=== PATIENT | female | born 1970 | race Hispanic/Latino ===

== ENCOUNTER 2017-03-26 02:14 | Emergency (ER) | payer OTHER ==
[2017-03-26 07:40] VITALS: BP 141/80
[2017-03-26] MEDS ORDERED: ULTRAM PO ONE (11:11)
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
== END 2017-03-26 11:17 | disposition home or self-care (01) ==
LOC: ED 02:14
DX: S16.1XXA Strain of muscle, fascia and tendon at neck level, initial encounter (principal); F17.200 Nicotine dependence, unspecified, uncomplicated; Z88.2 Allergy status to sulfonamides; V87.7XXA Person injured in collision between other specified motor vehicles (traffic), initial encounter; Y93.89 Activity, other specified; Y99.9 Unspecified external cause status; Y92.410 Unspecified street and highway as the place of occurrence of the external cause
CPT/HCPCS: 99282

== ENCOUNTER 2017-09-07 18:34 | Emergency (ER) | payer SELFPAY ==
--- NOTE | 2017-09-07 22:18 | XRay Report ---
FINAL REPORT EXAM: XR KNEE 3V RT HISTORY: right knee popped and pain TECHNIQUE: Three views right knee Comparison: None FINDINGS: Normal bony mineralization. No discrete fracture or dislocation. No definite suprapatellar bursal effusion of the lateral film is oblique. There is a small superior patellar pole osteophyte. There is mild medial tibial plateau subchondral sclerosis and small medial femoral condyle and medial tibial plateau osteophytes. IMPRESSION: Medial joint space and patellofemoral mild osteoarthritis. No fracture or dislocation.
[2017-09-07 22:28] VITALS: BP 147/76
--- NOTE | 2017-09-07 23:20 | Emergency Department Report ---
ED Lower Extremity HPI - General Chief Complaint: Extremity Injury, Lower Stated Complaint: KNEE PAIN Time Seen by Provider: 09/07/17 23:18 Source: patient Mode of arrival: Ambulatory Limitations: No Limitations - History of Present Illness Initial Comments: 47 y.o. female presents with right knee pain from fall. She was walking up the stairs of her home and her right knee popped. She fell down the stairs and was unable to bear weight on it. The pain is 10/10, sharp, constant on the posterior aspect of knee. States it is usually the left knee that gives her trouble. Denies numbness, tingling, swelling, bruising, or deformity. MD Complaint: knee injury, fall -: Sudden Injury: Knee: Right (She heard a pop and her knee went out) Place: home Severity: severe Severity scale (0 -10): 10 Improves With: immobilization Worsens With: weight bearing, movement Context: fall, walking Associated Symptoms: snap/pop sensation, unable to bear weight. denies: swelling, numbness, tingling, able to partially bear weight, ambulatory - Related Data Previous Rx's Medication Instructions Recorded Last Taken Type Cyclobenzaprine [Flexeril] 10 mg PO TID PRN #30 tablet 03/26/17 Unknown Rx Naproxen [Naprosyn TAB] 500 mg PO BID PRN #60 tablet 03/26/17 Unknown Rx Capsaicin [Zostrix] 56.6 gm TP BID 14 Days #1 cream..g. 09/08/17 Unknown Rx traMADol [Ultram 50 MG tab] 50 mg PO Q4HR PRN 7 Days #28 tablet 09/08/17 Unknown Rx Allergies Allergy/AdvReac Type Severity Reaction Status Date / Time Sulfa (Sulfonamide Allergy Vomiting Verified 03/26/17 02:23 Antibiotics) ED Review of Systems ROS: Stated complaint: KNEE PAIN Other details as noted in HPI Constitutional: no symptoms reported, see HPI. denies: chills, diaphoresis, fever, malaise, weakness Respiratory: no symptoms reported, see HPI. denies: cough, orthopnea, shortness of breath, SOB with exertion, SOB at rest, stridor, wheezing Cardiovascular: as per HPI. denies: chest pain, palpitations, dyspnea on exertion, orthopnea, edema, syncope, paroxysmal nocturnal dyspnea Musculoskeletal: as per HPI, arthralgia. denies: back pain, joint swelling, myalgia Skin: as per HPI. denies: rash, lesions, change in color, change in hair/nails , pruritus Neurological: as per HPI, abnormal gait (unable to bear weight to RLE). denies : headache, weakness, numbness, paresthesias, confusion, vertigo Psychiatric: as per HPI. denies: anxiety, depression, auditory hallucinations, visual hallucinations, homicidal thoughts, suicidal thoughts ED Past Medical Hx - Past Medical History Previous Medical History?: Yes Additional medical history: Fibromyalgia, Hernia - Surgical History Past Surgical History?: Yes Additional Surgical History: HERNIA REPAIR, Tubes tied - Social History Smoking Status: Current Every Day Smoker - Medications Home Medications: Home Medications Medication Instructions Recorded Confirmed Last Taken Type Cyclobenzaprine [Flexeril] 10 mg PO TID PRN #30 tablet 03/26/17 Unknown Rx Naproxen [Naprosyn TAB] 500 mg PO BID PRN #60 tablet 03/26/17 Unknown Rx Capsaicin [Zostrix] 56.6 gm TP BID 14 Days #1 cream..g. 09/08/17 Unknown Rx traMADol [Ultram 50 MG tab] 50 mg PO Q4HR PRN 7 Days #28 tablet 09/08/17 Unknown Rx ED Physical Exam - General Limitations: No Limitations General appearance: alert, in no apparent distress - Respiratory Respiratory exam: Present: normal lung sounds bilaterally. Absent: respiratory distress, wheezes, rales, rhonchi, stridor, chest wall tenderness, accessory muscle use, decreased breath sounds, prolonged expiratory - Cardiovascular Cardiovascular Exam: Present: regular rate, normal rhythm, normal heart sounds. Absent: bradycardia, tachycardia, irregular rhythm, systolic murmur, diastolic murmur, rubs, gallop, clicks, JVD, S3, S4 - GI/Abdominal GI/Abdominal exam: Present: soft, normal bowel sounds. Absent: distended, tenderness, guarding, rebound, rigid, diminished bowel sounds, hyperactive bowel sounds, hypoactive bowel sounds, organomegaly, mass, bruit, pulsatile mass , hernia - Expanded Lower Extremity Exam Right Hip exam: Present: normal inspection, full ROM. Absent: tenderness, swelling, abrasion, laceration, ecchymosis, deformity, crepidus, dislocation, erythema, external rotation, internal rotation, shortening, pelvic stability Upper Leg exam: Present: normal inspection, full ROM. Absent: tenderness, swelling, abrasion, laceration, ecchymosis, deformity, crepidus, dislocation, erythema Knee exam: Present: tenderness, pain w/ pronation/supination, pain/laxity with valgus. Absent: swelling, abrasion, laceration, ecchymosis, deformity, crepidus , dislocation, erythema, effusion, posterior draw sign, pain/laxity with varus Lower Leg exam: Present: normal inspection, full ROM. Absent: tenderness, swelling, abrasion, laceration, ecchymosis, deformity, crepidus, dislocation, erythema, palpable cord, Saeed's sign Ankle exam: Present: normal inspection, full ROM. Absent: tenderness, swelling , abrasion, laceration, ecchymosis, deformity, crepidus, dislocation, erythema, anterior draw sign Foot/Toe exam: Present: normal inspection, full ROM. Absent: tenderness, swelling, abrasion, laceration, ecchymosis, deformity, crepidus, dislocation, erythema, amputation, puncture wound, foreign body, calcaneal tenderness, tenderness at base of 5th metatarsal, nail avulsion, subungual hematoma Neuro vascular tendon exam: Present: no vascular compromise. Absent: pulse deficit, abnormal cap refill, motor deficit, sensory deficit, tendon deficit, extremity cold to touch, pallor, abnormal 2-point discrimination, decreased fine /light touch, foot drop, peroneal nerve deficit, significant pain with passive ROM of distal joint Gait: Positive: observed and limited by pain, unable to bear weight. Negative: observed and normal, not tested/not observed, antalgic ED Course Vital Signs 09/07/17 09/07/17 09/07/17 21:00 21:13 22:27 Temperature 97.8 F 97.8 F 98.1 F Pulse Rate 91 H 94 H 83 Respiratory 18 18 18 Rate Blood Pressure 149/86 149/86 Blood Pressure 147/76 [Left] O2 Sat by Pulse 99 99 98 Oximetry ED Lower Extremity MDM - Radiology Data Radiology results: image reviewed interpreted by me: Radiology FINDINGS: Normal bony mineralization. No discrete fracture or dislocation. No definite suprapatellar bursal effusion of the lateral film is oblique. There is a small superior patellar pole osteophyte. There is mild medial tibial plateau subchondral sclerosis and small medial femoral condyle and medial tibial plateau osteophytes. IMPRESSION: Medial joint space and patellofemoral mild osteoarthritis. No fracture or dislocation. Critical care attestation.: If time is entered above; I have spent that time in minutes in the direct care of this critically ill patient, excluding procedure time. ED Disposition Clinical Impression: Osteoarthritis of right knee Qualifiers: Osteoarthritis type: primary Qualified Code(s): M17.11 - Unilateral primary osteoarthritis, right knee Disposition: TO HOME OR SELFCARE Is pt being admited?: No Does the pt Need Aspirin: No Condition: Stable Instructions: Osteoarthritis (ED), Self-Care Measures with a Chronic Disease ( ED) Prescriptions: Capsaicin [Zostrix] 56.6 gm TP BID 14 Days #1 cream..g. traMADol [Ultram 50 MG tab] 50 mg PO Q4HR PRN 7 Days #28 tablet PRN Reason: Pain Referrals: JACQUE WILSON MD [Primary Care Provider] - 3-5 Days [facility] [Outside] - 3-5 Days [facility] [Outside] - 3-5 Days Forms: Work/School Release Form Time of Disposition: 01:04 Print Language: SETSWANA
[2017-09-08] MEDS ORDERED: ULTRAM PO ONE (00:16)
== END 2017-09-08 01:20 | disposition home or self-care (01) ==
LOC: ED 18:34
DX: M17.11 Unilateral primary osteoarthritis, right knee (principal); M79.7 Fibromyalgia; F17.200 Nicotine dependence, unspecified, uncomplicated; W01.0XXA Fall on same level from slipping, tripping and stumbling without subsequent striking against object, initial encounter; Y93.01 Activity, walking, marching and hiking; Y99.8 Other external cause status; Y92.009 Unspecified place in unspecified non-institutional (private) residence as the place of occurrence of the external cause